=== PATIENT | male | born 1980 | race Caucasian/White ===

== ENCOUNTER 2018-12-18 05:16 | Inpatient (IN) | payer OTHER ==
[2018-12-18] MEDS ORDERED: ROCURONIUM 50 MG INJ (06:48)
[2018-12-18] MEDS ORDERED: SUCCINYLCHOLINE CHLORIDE 100 MG/5 ML SYG IV (06:48)
[2018-12-18] MEDS ORDERED: PROPOFOL 20 ML (06:48)
[2018-12-18] MEDS ORDERED: MIDAZOLAM 1 MG/ML 2 ML INJ (06:48)
[2018-12-18] MEDS ORDERED: LIDOCAINE 1% (MDV) 20 ML INJ (06:49)
[2018-12-18] MEDS: CEFAZOLIN 2 GM/50 ML (PMX) 50 ML IVPB (06:52)
[2018-12-18] MEDS ORDERED: CEFAZOLIN 1 GM INJ (07:00)
[2018-12-18] MEDS ORDERED: DESFLURANE 15 MIN (07:00)
[2018-12-18] MEDS ORDERED: DEXAMETHASONE 4 MG/ML 5 ML INJ (07:20)
[2018-12-18] MEDS ORDERED: ONDANSETRON 4 MG INJ (07:20)
[2018-12-18] MEDS ORDERED: GELATIN SIZE 100 SPONGE (07:26)
[2018-12-18] MEDS ORDERED: THROMBIN 5000 UNIT VIAL (07:26)
[2018-12-18] MEDS: BUPIVACAINE 0.25% (MPF) 30 ML INJ (07:59)
[2018-12-18] MEDS: POLYMYXIN/BACITRACIN 1L IRRIG (07:59)
[2018-12-18] MEDS ORDERED: NEOSTIGMINE 3 MG/3 ML SYRINGE (08:34)
[2018-12-18] MEDS ORDERED: GLYCOPYRROLATE 0.4 MG INJ (08:34)
[2018-12-18] MEDS: DEXTROSE 5%-0.45% NACL 1,000 ML IV ×3 (08:39→23:02)
[2018-12-18] MEDS ORDERED: SUGAMMADEX SODIUM 200 MG/2 ML VIAL IV (08:42)
[2018-12-18] MEDS ORDERED: HYDROCODONE/APAP (5/325) TAB PO (09:00)
[2018-12-18] MEDS ORDERED: ONDANSETRON 4 MG INJ IV (09:00)
[2018-12-18] MEDS ORDERED: TRIMETHOBENZAMIDE 100 MG/ML VIAL IM (09:00)
[2018-12-18] MEDS ORDERED: LABETALOL HCL 20MG INJ IV (09:00)
[2018-12-18] MEDS ORDERED: PROCHLORPERAZINE 10 MG TAB PO (09:00)
[2018-12-18] MEDS ORDERED: PROCHLORPERAZINE 10 MG INJ IV (09:00)
[2018-12-18] MEDS ORDERED: NACL 0.9% 3 ML SYG IV (09:00)
[2018-12-18] MEDS ORDERED: NALOXONE (0.4 MG/ML) INJ IV (09:00)
[2018-12-18] MEDS ORDERED: BETHANECHOL 25 MG TAB PO (09:00)
[2018-12-18] MEDS ORDERED: ZOLPIDEM 5 MG TAB PO (09:00)
[2018-12-18] MEDS ORDERED: DIPHENHYDRAMINE 50 MG CAP PO (09:00)
[2018-12-18] MEDS ORDERED: AL HYDROX/MG HYDROX/SIMETH 30 ML CUP PO (09:00)
[2018-12-18] MEDS ORDERED: DIAZEPAM 5 MG/ML SYG IM (09:00)
[2018-12-18] MEDS ORDERED: HYDROmorphONE 1 MG/5 ML IV SYRINGE IV (09:12)
[2018-12-18] MEDS: ONDANSETRON 4 MG INJ IV (09:13)
[2018-12-18] MEDS: HYDROmorphONE 1 MG/5 ML IV SYRINGE IV ×6 (09:13→09:50)
[2018-12-18] MEDS: LACTATED RINGER'S 1,000 ML IV* (09:14)
[2018-12-18] MEDS: HYDROmorphONE 0.2 MG/ML PCA IV ×2 (09:25→19:53)
[2018-12-18] MEDS: [UNRECOGNIZED DRUG - OTHER] XX ×2 (10:30→18:30)
[2018-12-18] MEDS: PANTOPRAZOLE SODIUM 20 MG TABEC PO ×2 (13:39→18:00)
[2018-12-18] MEDS: CEFAZOLIN 1 GM/50 ML (PMX) 50 ML IVPB ×3 (13:39→23:49)
[2018-12-18] MEDS: LORATADINE 10 MG TAB PO (13:39)
[2018-12-18] MEDS: ACETAMINOPHEN 325 MG TAB PO ×3 (13:49→23:08)
[2018-12-18] MEDS: CEPASTAT LOZENGE MT (20:54)
[2018-12-18] MEDS: RANITIDINE 150 MG TAB PO (20:54)
[2018-12-18] MEDS: GABAPENTIN 400 MG CAP PO (20:57)
[2018-12-18] MEDS: DIAZEPAM 5 MG TAB PO (23:08)
[2018-12-19] MEDS: [UNRECOGNIZED DRUG - OTHER] XX ×2 (02:30→10:30)
[2018-12-19 04:55] LABS: HEMATOCRIT 39.4 % (42.0-52.0)
[2018-12-19 05:22] LABS: ANION GAP 13 (5-13); BLOOD UREA NITROGEN 10 mg/dl (7-20); CALCIUM 8.7 mg/dl (8.4-10.2); CARBON DIOXIDE 29 mmol/L (21-31); CHLORIDE 102 mmol/L (97-110); CREATININE 0.55 mg/dl (0.61-1.24); Estimated GFR > 60 mL/min (>60); GLUCOSE 124 mg/dl (70-220); POTASSIUM 3.9 mmol/L (3.5-5.1); SODIUM 144 mmol/L (135-144)
[2018-12-19] MEDS: PANTOPRAZOLE SODIUM 20 MG TABEC PO (05:39)
[2018-12-19] MEDS: CEFAZOLIN 1 GM/50 ML (PMX) 50 ML IVPB (05:39)
[2018-12-19] MEDS: LACTATED RINGER'S 1,000 ML IV* (06:00)
[2018-12-19] MEDS ORDERED: BETHANECHOL 25 MG TAB PO (08:00)
[2018-12-19] MEDS: ASCORBIC ACID 500 MG TAB PO (08:58)
[2018-12-19] MEDS: GABAPENTIN 400 MG CAP PO (08:58)
[2018-12-19] MEDS: DOCUSATE SODIUM 100 MG CAP PO (08:58)
[2018-12-19] MEDS: RANITIDINE 150 MG TAB PO (08:58)
[2018-12-19] MEDS: LORATADINE 10 MG TAB PO (08:59)
[2018-12-19] MEDS: FERROUS SULFATE (EC) 325 MG TAB PO (09:00)
[2018-12-19] MEDS ORDERED: NON-FORMULARY/PATIENT OWN MED (Amphet Asp-Amphet-D-Amphet (Adderall) 20 MG) PO (09:00)
[2018-12-19] MEDS: HYDROCODONE/APAP (5/325) TAB PO (09:08)
[2018-12-19] MEDS: CEPASTAT LOZENGE MT (09:35)
== END 2018-12-19 13:14 | disposition home or self-care (01) | DRG 520 ==
LOC: REC 05:16 → MS1 10:04
PROC: 0SB40ZZ Excision of Lumbosacral Disc, Open Approach (ICD-10-PCS; principal; 2018-12-18 07:04)
DX: M51.27 Other intervertebral disc displacement, lumbosacral region (principal)
CPT/HCPCS: 72020; 80048; 85014; 85018; 86850; 86900; 86901; 86920; 88304; 97110; 97116; 97161; 97530